=== PATIENT | male | born 1980 | race Caucasian/White ===

== ENCOUNTER 2016-10-09 23:13 | Emergency (ER) | payer OTHER ==
[~2016-10-09] VITALS: Ht 177.8 cm; Wt 75.0 kg
[2016-10-09 23:56] VITALS: Ht 177.8 cm; Wt 75.0 kg
[2016-10-10] MEDS ORDERED: AMOX1TAB10 PO (02:04)
[2016-10-10] MEDS ORDERED: KETOROLAC 60 MG INJ IM STA (02:32)
[2016-10-10] MEDS ORDERED: NAPR-688 PO (02:39)
[2016-10-10] MEDS ORDERED: HYDR-906 PO (02:39)
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
[2016-10-10] MEDS ORDERED: DIPHTH/TET/ACEL PERTUSS (ADULT) 0.5 ML VIAL IM* ONE (03:00)
== END 2016-10-10 03:24 | disposition home or self-care (01) ==
LOC: FTE 23:13
DX: S40.812A Abrasion of left upper arm, initial encounter (principal); Y04.1XXA Assault by human bite, initial encounter; Z23 Encounter for immunization
CPT/HCPCS: 90471; 90715; 96372; J1885; Z7502

== ENCOUNTER 2016-11-21 20:06 | Emergency (ER) | payer OTHER ==
[~2016-11-21] VITALS: Ht 180.3 cm; Wt 73.5 kg
[~2016-11-21 20:06] MED LIST: AMOX1TAB10 PO; HYDR-906 PO; NAPR-688 PO
[2016-11-21 20:10] VITALS: Ht 180.3 cm; Wt 73.5 kg
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
--- NOTE | 2016-11-21 21:30 | RADRPT ---
PROCEDURE: CT facial bones. CLINICAL INDICATION: Pain/trauma. TECHNIQUE: CT examination of the facial bones without IV contrast was performed on a [address] [employer] Coronal and sagittal reformatted images were made. Radiation dose: Total CTDIvol: 29 mGy. Total DLP: 612 mGy-cm. One or more of the following dose r eduction techniques were used: automated exposure control, adjustment of the mA and/or kV according to patient size, or use of iterative reconstruction technique. COMPARISON: None. FINDINGS: There is no fracture, dislocation or destructive lesion. The paranasal sinuses are normal. The ost iomeatal units, nasofrontal ducts and splenoethmoid recesses are clear. There is dehiscence of the lamina papyracea bilaterally. The orbits also normal. There is no nasal mass. There is no deviation of the nasal septum. The temporal bones, base of sku ll, nasopharynx and oropharynx are also normal. The surrounding soft tissues, otherwise, are also u nremarkable. IMPRESSION: 1. Unremarkable CT facial bones. RPTAT: GG .Yaniv Mclean MD, Date Time Electronically viewed and signed by .Yaniv Mclean MD, on 11/21/2016 21:30 .Y/
[2016-11-21] MEDS ORDERED: ACET500C5 PO (21:49)
[2016-11-21] MEDS ORDERED: IBUP-1542 PO (21:49)
[2016-11-21] MEDS ORDERED: TRAM50TA2 PO (21:49)
[2016-11-21 22:05] VITALS: BP 116/78; PULSE 78; RESP 18; TEMP 98.7
== END 2016-11-21 22:07 | disposition home or self-care (01) ==
LOC: FTE 20:06
DX: S00.83XA Contusion of other part of head, initial encounter (principal); S09.90XA Unspecified injury of head, initial encounter; Y04.0XXA Assault by unarmed brawl or fight, initial encounter
CPT/HCPCS: 70486